=== PATIENT | female | born 1990 | race Caucasian/White ===

== ENCOUNTER 2019-10-19 15:11 | Emergency (ER) | payer OTHER, SELFPAY ==
[2019-10-19 15:51] VITALS: BP 139/88; PULSE 107; RESP 16; TEMP 36.9; O2SAT 95
[2019-10-19 16:07] LABS: Basophils Percent Auto 0.2 % (0.2-1.2); Eosinophils Percent Auto 0.3 % (0-4.4); Hematocrit 37.4 % (37.0-47.0); Hemoglobin 12.5 g/dL (12.0-15.0); Immature Granulocyte Absolute 0.07 K/mm3 (0.00-0.031); Immature Granulocyte Percent A 0.6 % (0-0.5); Lymphocytes Absolute Auto 1.08 K/mm3 (0.9-3.2); Lymphocytes Percent Auto 8.9 % (18.3-44.2); Mean Corpuscular HGB Conc 33.4 g/dl (32-36); Mean Corpuscular Hemoglobin 31.8 pg (26-34); Mean Corpuscular Volume 95.2 fl (80-100); Mean Platelet Volume 9.1 fl (7.4-10.4); Monocytes Absolute Auto 0.2 K/mm3 (0.1-0.6); Monocytes Percent Auto 1.2 % (2.6-8.5); Neutrophils Absolute Auto 10.8 K/mm3 (1.3-6.7); Neutrophils Percent Auto 88.8 % (45.5-73.1); Platelet Count Result 666 k/mm3 (150-375); Red Blood Count 3.93 M/mm3 (4.2-5.4); Red Cell Distribution Width 11.9 % (11.5-14.5); White Blood Count 12.1 K/mm3 (4.5-10.0)
[2019-10-19 16:12] LABS: Add Urine Microscopic? YES; Appearance Urine Clear (Clear); Bacteria Urine Trace /hpf; Bilirubin Urine 1+ (Negative); Color Urine Amber (Yellow); Glucose Urine UA Negative (Negative); Ketones Urine Negative (Negative); Leukocyte Esterase Ur Trace LEU/UL (Negative); Mucus Urine Heavy /lpf; Nitrate Urine Negative (Negative); Protein Urine 2+ mg/dL (Negative); RBC Urine 0-2 /hpf (0-2); Squamous Epithelial Cell Urine Many /hpf (Few)
[2019-10-19 16:13] LABS: Blood Urine Negative (Negative); Specific Grav Ur 1.039 (1.001-1.035)
[2019-10-19 16:18] LABS: Alanine Aminotransferase 15 U/L (4-35); Albumin Level 4.2 g/dL (3.5-5.1); Alkaline Phosphatase 157 U/L (38-126); Aspartate Amino Transferase 23 U/L (14-36); Bilirubin,Total 0.5 mg/dL (0.2-1.3); Blood Urea Nitrogen 6 mg/dL (7-17); Calcium 9.4 mg/dL (8.4-10.2); Carbon Dioxide 24 mmol/L (22-30); Chloride 99 mmol/L (98-107); Estimated CRCL calculation 130 ml/min; Estimated Glomerular Filt Rate > 60; Glucose 124 mg/dL (65-105); Lipase 17 U/L (23-300); Potassium 3.1 mmol/L (3.4-5.0); Sodium 136 mmol/L (137-145)
--- NOTE | 2019-10-19 16:35 | ED.NAVMDI ---
HPI - Nausea/Vomiting/Diarrhea General Chief complaint: Nausea/Vomiting/Diarrhea Stated complaint: fever, n/v x1 week Time Seen by Provider: 10/19/19 16:26 History of Present Illness HPI Narrative: Patient presents with her for 1 week of nausea vomiting and diarrhea. Yesterday she actually felt better and only vomited once last night, but then it resumed again today. She last vomited in the car on the way here. 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 Her children are 2 and 4 but they are not sick. She has not been camping, they have not traveled. No one else in the family is sick. She has not had an illness like this before. She has had no fever. Today she felt very weak. Her only medication is control. Surgeries include 2 C-sections. She stopped drinking 1 week ago. She smokes marijuana but not cigarettes. MD elicited complaint: nausea, vomiting and diarrhea Onset (ago): day(s) Related Data Home Medications Medication Instructions Recorded Confirmed Control 10/19/19 Allergies Allergy/AdvReac Type Severity Reaction Status Date / Time No Known Allergies Allergy Unknown Unverified 10/19/19 15:12 Review of Systems Review of Systems: Narrative: CONSTITUTIONAL: Denies fever, chills, or sweats. EYES: Denies visual changes, redness, or discharge. ENT: Denies rhinorrhea, congestion, sore throat, or otalgia. CARDIOVASCULAR: Denies chest pain, palpitations, or edema. RESPIRATORY: Denies cough or dyspnea. GASTROINTESTINAL: Denies abdominal pain, but has nausea, vomiting, and diarrhea. GENITOURINARY: Denies dysuria or hematuria. SKIN: Denies rash or itching. MUSCULOSKELETAL: Denies back pain, joint pain, or myalgia. NEUROLOGIC: Denies headache, numbness, or weakness. PSYCHIATRIC: Denies anxiety or depression. [facility] Past Medical History Medical History Family planning Surgical History Surgical History History of Social History Social History (Updated 10/19/19 @ 16:38 by Venus Still MD) Smoking status: Never smoker Alcohol intake: current Substance use: current Substance use type: marijuana Gender identity (if verbalized by the patient): Female Exam Narrative: Exam Narrative: GENERAL: Well-appearing, well-nourished, and in no acute distress. Overweight HEAD: Normocephalic, atraumatic. EYES: PERRLA and EOMI. ENT: Nares clear, no rhinorrhea or epistaxis. Mucous membranes moist. NECK: Supple. CHEST: Clear to auscultation. No respiratory distress. HEART: Regular rate and rhythm. No murmur heard. Normal peripheral pulses. ABDOMEN: Soft, nontender, nondistended, normal active bowel sounds. EXTREMITIES: Normal range of motion. No edema. SKIN: Warm, dry, no rash. NEURO: No focal deficits. Alert and oriented x3. PSYCH: Normal mood and affect. Course Reevaluation(s) Reevaluation #1: Went in to talk to the patient and her . Her fluids just finished and she feels much better. She has a bag of open pretzels next to her and she says she is hungry. I offered to give her a prescription for Zofran and she accepts. I discussed the brat diet, and getting some probiotics. She understands. Date: 10/19/19 Time: 17:31 Vital Signs Vital signs: Vital Signs Temperature 98.4 F 10/19/19 15:51 Pulse Rate 107 H 10/19/19 15:51 Respiratory Rate 16 10/19/19 15:51 Blood Pressure 139/88 10/19/19 15:51 Pulse Oximetry 95 10/19/19 15:51 Temperature 98.4 F 10/19/19 15:51 Pulse Rate 107 H 10/19/19 15:51 Respiratory Rate 16 10/19/19 15:51 Blood Pressure 139/88 10/19/19 15:51 Pulse Oximetry 95 10/19/19 15:51 MDM - Nausea/Vomiting/Diarrhea Differential Diagnosis Differential diagnosis: Likely gastroenteritis Medical Records Attestation: I reviewed the patient's medical records. Lab Data Attestation: I reviewed the patient's lab
[2019-10-19] MEDS: ONDANSETRON INJ 4 MG/2 ML VIAL IV PUSH (16:45)
[2019-10-19] MEDS: SODIUM CHLORIDE 0.9% IV 1,000 ML 999 ML IV CONT (16:46)
[2019-10-19] MEDS: POTASSIUM CHLORIDE 10 MEQ TABLET PO (16:48)
[2019-10-19 17:57] VITALS: BP 128/78; PULSE 80; RESP 16; O2SAT 99
== END 2019-10-19 17:59 | disposition home or self-care (01) ==
PROVIDERS: Emergency Provider Emergency Medicine; PCP Nurse Practitioner Family
DX: K52.9 Noninfective gastroenteritis and colitis, unspecified (principal); E87.6 Hypokalemia; D47.3 Essential (hemorrhagic) thrombocythemia
CPT/HCPCS: 36415; 80053; 81001; 81025; 83690; 85025; 87086; 96361; 96374; 99284; A9270; J2405; J7030

== ENCOUNTER 2020-08-09 12:48 | Emergency (ER) | payer OTHER, SELFPAY ==
--- NOTE | ~2020-08-09 | XR_ITS ---
XR heel LT min 2V 08/09/2020 13:38 Indication: Left heel pain Procedure: 2 views left heel Comparison: No prior studies for comparison. Findings: No fracture, subluxation or dislocation. There is a prominent plantar calcaneal enthesophyt e. No focal soft tissue abnormality. No foreign bodies. Impression: 1: No acute bone or joint abnormality. Reviewed, dictated and finalized at location B. Impression: 1: No acute bone or joint abnormality.
[2020-08-09 13:09] VITALS: TEMP 36.8
--- NOTE | 2020-08-09 13:34 | ED.GENADULT ---
HPI - General Adult General Chief complaint: Extremity Injury, Lower Stated complaint: heel injury Time Seen by Provider: 08/09/20 13:25 Source: patient History of Present Illness HPI narrative: Patient is a 29 y/o female complaining of left heel pain after she missed a step yesterday. She describes her pain as sharp and rates it as 7/10. She states that weight bearing aggravates her pain. There is no pain radiation. Related Data Home Medications Medication Instructions Recorded Confirmed Control 10/19/19 Allergies Allergy/AdvReac Type Severity Reaction Status Date / Time No Known Allergies Allergy Unknown Unverified 10/19/19 15:12 Review of Systems Constitutional: Constitutional: Denies chills, Denies fever(s), Denies headache(s) and Denies weakness Eyes: Eyes: Denies blurry vision ENT: Denies headache(s) and Denies neck pain Cardiovascular: Cardiovascular: Denies chest pain and Denies dyspnea Respiratory: Respiratory: Denies cough and Denies dyspnea Gastrointestinal: Gastrointestinal: Denies abdominal pain, Denies diarrhea, Denies nausea and Denies vomiting Genitourinary: Genitourinary: Denies hematuria and Denies dysuria Musculoskeletal: Musculoskeletal: Reports as per HPI, Denies back pain, Denies neck pain and Reports other (left heel pain) Neurologic: Denies headache(s) and Denies weakness PMFSH Past Medical History Medical History Family planning Surgical History Surgical History History of Social History Social History Smoking status: Never smoker Alcohol intake: current Substance use: current Substance use type: marijuana Gender identity (if verbalized by the patient): Female Exam Const: General: no acute distress and well developed Orientation/consciousness: oriented to person, oriented to place, oriented to time and patient oriented x3 HENMT: Head: normocephalic Ears: external ears normal General nose exam: Normal external nose present Eyes: General: appearance normal, both eyes and all related structures Conjunctivae: conjunctivae normal Neck: Neck: normal visual inspection and full ROM Chest: Chest palpation & inspection: normal inspection of the chest and no tenderness Skin: General skin exam: normal color and turgor normal Neuro: General: oriented to person, oriented to place, oriented to time and patient oriented x3 Cognition (Neuro): normal cognition Extrem: General: normal to inspection, full ROM and no pedal edema Left lower extremity: foot Details: tenderness (heel) Psych: Appearance: grossly normal Mental Status: mental status grossly normal Affect: normal affect Course Vital Signs Vital signs: Vital Signs Temperature 36.8 C 08/09/20 13:09 Temperature 36.8 C 08/09/20 13:09 Medical Decision Making Vital Signs Vital Signs: Vital Signs Temperature 36.8 C 08/09/20 13:09 Temperature 36.8 C 08/09/20 13:09 Lab Data Labs: UCG Bedside Result Negative Reference Range: Negative Discharge Plan Discharge Clinical Impression: Pain of left heel, Plantar fasciitis, left Patient Disposition: Home, Self-Care Condition: Stable Instructions: Plantar Fasciitis (ED) Prescriptions: No Action Control RF: 0 ondansetron HCl [Zofran] 4 mg tablet 4 mg PO Q6H PRN (Reason: nausea and vomiting) Qty: 20 RF: 0 Follow-up/Referrals: [facility],Aide See APN [Primary Care Provider] - Stand Alone Forms: Work/School Release IP
== END 2020-08-09 14:47 | disposition home or self-care (01) ==
PROVIDERS: Emergency Provider Emergency Medicine; PCP Nurse Practitioner Family
DX: M79.672 Pain in left foot (principal); M72.2 Plantar fascial fibromatosis; X58.XXXA Exposure to other specified factors, initial encounter
CPT/HCPCS: 73650; 81025; 99283

== ENCOUNTER 2023-06-13 17:06 | Outpatient (CLI) | payer OTHER, SELFPAY ==
[2023-06-13 17:57] LABS: Beta HCG Quantitative 8.25 mIU/ML
== END 2023-06-13 17:07 | disposition home or self-care (01) ==
LOC: ANHLAB 17:08
PROVIDERS: PCP Nurse Practitioner Family; Visit Provider Obstetrics & Gynecology
DX: N92.6 Irregular menstruation, unspecified (principal)
CPT/HCPCS: 36415; 84702

== ENCOUNTER 2023-06-15 11:35 | Outpatient (CLI) | payer OTHER, SELFPAY ==
[2023-06-15 12:12] LABS: Beta HCG Quantitative < 2.39 mIU/ML
== END 2023-06-15 11:36 | disposition home or self-care (01) ==
LOC: ANHLAB 11:36
PROVIDERS: PCP Nurse Practitioner Family; Visit Provider Obstetrics & Gynecology
DX: N92.6 Irregular menstruation, unspecified (principal)
CPT/HCPCS: 36415; 84702

== ENCOUNTER 2024-05-28 09:22 | Inpatient (IN) | payer BC, SELFPAY ==
[2024-05-28] VITALS (51 sets, daily range): BP systolic 99–143; BP diastolic 51–111; PULSE 71–112; RESP 12–18; TEMP 36.3–36.9; O2SAT 94–100; BMI 39.8
--- OUTSIDE RECORDS SUMMARY | 2024-05-28 00:17 | XMS_ITS | Data Portability ---
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 Plan of Treatment Reminders Order Date Submit Date Provider Last Modified By Organization Details Last Modified Time Details Appointments None recorded . Lab TSH, ultra-se nsitive, serum 2022 023 TAMARA [facility], [address], [place], [address], 3 08:33:52 CMP, serum or plasma 2022 023 TAMARA [facility], [address], [place], [address], 3 03:07:53 lipid panel, serum 2022 023 TAMARA [facility], [address], [place], [address], 3 03:07:52 CBC 2022 023 TAMARA [facility], [address], [place], [address], 3 03:07:54 vitamin D, 25-hydro xy, total, serum 2022 023 TAMARA [facility], [address] [facility], [address], [place], [address], 3 08:33:52 Referral None recorded . Procedures None recorded . Surgeries None recorded . Imaging None recorded . Medication Orders hydrochl orothiaz venancio 12.5 mg tablet 2022 023 [facility] #[id number], [address], [place], [place], [id number], 4 15:47:03 Wellbutr in SR 150 mg tablet, 12 hr sustaine d-releas e [address] [facility] #[id number], [address], [place], [place], [id number], 4 17:07:01 hydrochl orothiaz venancio 12.5 mg tablet 2022 023 [id number], [address], [place], [place], [id number], 4 15:47:03 Wellbutr in SR 150 mg tablet, 12 hr sustaine d-releas e [address] [facility][id number], [address], [place], [place], [id number], 4 17:07:01 hydrochl orothiaz venancio 12.5 mg tablet 2023 024 [id number], [address], [place], [place], [id number], 4 15:47:13 Patient TargetsNo targets recorded. Patient Instructions Encounter Date Encounter Id Patient Instructions Last Modified By Organization Details Last Modified Time 07/31/2022 [id number] A healthy lifestyle: care instructions Not available 07/31/2022 11:48:37 leg and ankle edema: care instructions Not available 07/31/2022 11:48:36 learning about vitamin D Not available 07/31/2022 11:48:36 attention defici t hyperactivity disorder (ADHD) in adults: care instructions Not available 07/31/2022 11:48:36 learning about mood disorders Not available 07/31/2022 11:48:36 Cont on current medications. Not available 07/31/2022 11:42:00 f/u 6 months DWP barriers to care: none Not available 07/31/2022 11:42:01 01/30/2023 [id number] A healthy lifestyle: care instructions Not available 01/30/2023 17:19:42 leg and ankle edema: care instructions Not available 01/30/2023 17:19:42 learning about vitamin D Not available 01/30/2023 17:19:42 attention defici t hyperactivity disorder (ADHD) in adults: care instructions Not available 01/30/2023 17:19:42 learning about mood disorders Not available 01/30/2023 17:19:42 Cont on current medications. Not available 01/30/2023 17:08:59 f/u 6 months DWP barriers to care: none Not available 01/30/2023 17:09:00 08/26/2023 [id number] A healthy lifestyle: care instructions Not available 08/26/2023 17:16:31 leg and ankle edema: care instructions Not available 08/26/2023 17:16:31 learning about vitamin D Not available 08/26/2023 17:16:31 attention defici t hyperactivity disorder (ADHD) in adults: care instructions Not available 08/26/2023 17:16:31 learning about mood disorders Not available 08/26/2023 17:16:31 Cont on current medications. Not available 08/26/2023 16:45:53 f/u 6 months DWP barriers to care: none Not available 08/26/2023 17:16:47 12/02/2023 [id number] work-life balanc e: care instructions Not available 12/02/2023 16:07:02 nutrition during : care instructions Not available 12/02/2023 16:07:13 exercise during : care instructions Not available 12/02/2023 16:07:13 Increase intake of fresh fruits, and vegetables. Avoid packaged foods and fast foods. Follow a low salt diet, drink at least 8-10 8oz glasses of water a day, exercise most days of the week. Take all medications as prescribed. Keep appointments with PCP and all specialists. Not available 12/02/2023 16:06:45 follow up as needed Not available 12/02/2023 16:06:52 03/13/2024 [id number] tetanus and diphtheria booster: care instructions Not available 03/14/2024 20:16:37 Reason for Referral None Reported. Results Created Date Observation Date Name Description Value Unit Range Abnormal Flag Note LastModifiedBy Organization Detail LastModifiedTime 02/14/2002/13/2023 LIPID PANEL cholesterol, total 218 mg/dL 100-19 9 above high normal Not Available [facility] [address] [place], [address], 02/14/2023 03:07:52 02/14/2002/13/2023 LIPID PANEL triglyceride s 168 mg/dL 0-149 above high normal Not Available [facility] [address] [place], [address], 02/14/2023 03:07:52 02/14/2002/13/2023 LIPID PANEL HDL cholesterol 57 mg/dL 40-999 Not Available [facility] [address] [place], [address], 02/14/2023 03:07:52 02/14/2002/13/2023 LIPID PANEL VLDL cholesterol vanita 34 mg/dL 5-40 Not Available [facility] [address] [place], [address], 02/14/2023 03:07:52 02/14/2002/13/2023 LIPID PANEL LDL chol calc (nih) 151 mg/dL 0-99 above high normal Not Available [facility] [address] [place], [address], 02/14/2023 03:07:52 02/14/20 23 02/13/2023 COMP. METAB OLIC PANEL (14) glucose 102 mg/dL 70-99 above high normal Not Available [facility] [address] [place], [address], 02/14/2023 03:07:53 02/14/20 23 02/13/2023 COMP. METAB OLIC PANEL (14) BUN 9 mg/dL 6-20 Not Available [facility] [address] [place], [address], 02/14/2023 03:07:53 02/14/20 23 02/13/2023 COMP. METAB OLIC PANEL (14) creatinine 0.57 mg/dL 0.76-1 .27 below low normal Not Available [facility] [address] [place], [address], 02/14/2023 03:07:53 02/14/20 23 02/13/2023 COMP. METAB OLIC PANEL (14) eGFR 123 >=60 Units for eGFR value s are mL/mi n/1.7 3 The eGFR Calcu latio n has not been valid ated for patie nts under the age of 18. If test resul ts are displ ayed for a patie nt under the age of 18, disre nehemiah that value . Not Available [facility] [address] [place], [address], 02/14/2023 03:07:53 02/14/20 23 02/13/2023 COMP. METAB OLIC PANEL (14) BUN/creatini ne ratio 15 9-23 Not Available [facility] [address] [place], [address], 02/14/2023 03:07:53 02/14/20 23 02/13/2023 COMP. METAB OLIC PANEL (14) sodium 141 mmol/ L 134-14 4 Not Available [facility] [address] [place] [address], [address], 02/14/2023 03:07:53 02/14/20 23 02/13/2023 COMP. METAB OLIC PANEL (14) potassium 4.2 mmol/ L 3.5-5. 2 Not Available [facility] [address] [place], [address], 02/14/2023 03:07:53 02/14/20 23 02/13/2023 COMP. METAB OLIC PANEL (14) chloride 102 mmol/ L 96-106 Not Available [facility] [address] [place] [address], [address], 02/14/2023 03:07:53 02/14/20 23 02/13/2023 COMP. METAB OLIC PANEL (14) carbon dioxide, total 27 mmol/ L 20-29 Not Available [facility] [address] [place], [address], 02/14/2023 03:07:53 02/14/20 23 02/13/2023 COMP. METAB OLIC PANEL (14) calcium 9.8 mg/dL 8.7-10 .2 Not Available [facility] [address] [place] [address], [address], 02/14/2023 03:07:53 02/14/20 23 02/13/2023 COMP. METAB OLIC PANEL (14) protein, total 7.3 g/dL 6.0-8. 5 Not Available [facility] [address] [place], [address], 02/14/2023 03:07:53 02/14/20 23 02/13/2023 COMP. METAB OLIC PANEL (14) albumin 4.6 g/dL 3.9-4. 9 Not Available [facility] [address] [place] [address], [address], 02/14/2023 03:07:53 02/14/20 23 02/13/2023 COMP. METAB OLIC PANEL (14) globulin, total 2.7 g/dL 1.5-4. 5 Not Available [facility] [address] [place], [address], 02/14/2023 03:07:53 02/14/20 23 02/13/2023 COMP. METAB OLIC PANEL (14) A/G ratio 2.0 1.2-2. 2 Not Available [facility] [address] [place], [address], 02/14/2023 03:07:53 02/14/20 23 02/13/2023 COMP. METAB OLIC PANEL (14) bilirubin, total 0.3 mg/dL 0.0-1. 2 Not Available [facility] [address] [place], [address], 02/14/2023 03:07:53 02/14/20 23 02/13/2023 COMP. METAB OLIC PANEL (14) alkaline phosphatase 74 IU/L 44-121 Not Available [facility] [address] [place], [address], 02/14/2023 03:07:53 02/14/20 23 02/13/2023 COMP. METAB OLIC PANEL (14) AST (SGOT) 15 IU/L 0-40 Not Available [facility] [address] [place], [address], 02/14/2023 03:07:53 02/14/20 23 02/13/2023 COMP. METAB OLIC PANEL (14) ALT (SGPT) 11 IU/L 0-32 Not Available [facility] [address] [place] [address], [address], 02/14/2023 03:07:53 02/14/20 23 02/13/2023 CBC, NO DIFFE RENTI AL/PL ATELE T WBC 9.2 x10e3 /uL 3.4-10 .8 Not Available [facility] [address] [place], [address], 02/14/2023 03:07:54 02/14/20 23 02/13/2023 CBC, NO DIFFE RENTI AL/PL ATELE T RBC 4.30 x10e6 /uL 3.77-5 .28 Not Available [facility] [address] [place], [address], 02/14/2023 03:07:54 02/14/2002/13/2023 CBC, NO DIFFE RENTI AL/PL ATELE T hemoglobin 13.2 g/dL 11.1-1 5.9 Not Available [facility] [address] [place], [address], 02/14/2023 03:07:54 02/14/2002/13/2023 CBC, NO DIFFE RENTI AL/PL ATELE T hematocrit 41.2 % 34.0-4 6.6 Not Available [facility] [address] [place], [address], 02/14/2023 03:07:54 02/14/20 23 02/13/2023 CBC, NO DIFFE RENTI AL/PL ATELE T MCV 96 fL 79-97 Not Available [facility] [address] [place], [address], 02/14/2023 03:07:54 02/14/2002/13/2023 CBC, NO DIFFE RENTI AL/PL ATELE T MCH 30.7 pg 26.6-3 3.0 Not Available [facility] [address] [place], [address], 02/14/2023 03:07:54 02/14/20 23 02/13/2023 CBC, NO DIFFE RENTI AL/PL ATELE T MCHC 32.0 g/dL 31.5-3 5.7 Not Available [facility] [address] [place], [address], 02/14/2023 03:07:54 02/14/20 23 02/13/2023 CBC, NO DIFFE RENTI AL/PL ATELE T RDW 12.2 % 11.5-1 4.5 Not Available [facility] [address] [place], [address], 02/14/2023 03:07:54 02/14/20 23 02/13/2023 CBC, NO DIFFE RENTI AL/PL ATELE T NRBC 0 % 0-0 Not Available [facility] [address] [place], [address], 02/14/2023 03:07:54 02/14/20 23 02/14/2023 TSH RFX ON ABNOR MAL TO FREE T4 TSH 4.040 uIU/m L 0.450- 4.500 Not Available [facility] ([facility]) [address] [facility], [place], [address], 02/14/2023 08:33:51 02/14/2002/14/2023 VITAM IN D, 25-HY DROXY vitamin D, 25-hydroxy 30.7 NG/mL 30.0-1 00.0 Vitam in D defic iency has been defin ed by the Insti tute of Medic ine and an Endoc rine Socie ty pract ice guide line as a level of serum 25-OH vitam in D less than 20 ng/mL (1,2) . The Endoc rine Socie ty went on to furth er defin e vitam in D insuf ficie ncy as a level betwe en 21 and 29 ng/mL (2). 1. IOM (Inst itute of Medic ine). 2009. Dieta ry refer ence intak es for calci um and D. Sarah jean [place]: [facility] Press . 2. Katie foster MF, Larisa henderson [place], Chiqui off-F errar i PATEL, et al. Evalu ation , treat ment, and preve ntion of vitam in D defic iency : an Endoc rine Socie ty clini vanita pract ice guide line. JCEM. 2010; 96(7) :1911 -30. Not Available [facility] ([facility]) [address] [facility], [place], [address], 02/14/2023 08:33:52 Result Notes None recorded. Problems Name Problem SNOMED Code Status Onset Date Resolution Date Notes Provider Name and Address Organization Details Recorded Time Body mass index 30+ - obesity 676239319 Active 2017 Aide Fischer APN, FNP-C Attn: Shanikahaydee kc,[address] [place], [place], [address] [place] [address] 2, [facility] - SI 0 18:20:04 Vitamin D deficienc y 23624963 Active 2018 Aide Fischer APN, FNP-C Attn: Shanikahaydee kc,[address] [place], [place], [address] [place] [address] 2, [facility] - SIF 0 18:20:04 Gastroeso phageal reflux disease without esophagit is 867648760 Active 2018 Aide Fischer APN, FNP-C Attn: Shanikahaydee kc,[address] [place], [place], [address] [place] [address] 2, [place] - [facility] 0 18:20:04 Mood disorder 29402752 Active 2019 Aide Fischer APN, FNP-C Attn: Hope de,[address] [place], [place], [address] [place] [address] 2, [place] - [place] 0 11:44:32 Bilateral plantar fasciitis 680081842008 36641 Active 2020 Aide Fischer APN, FNP-C Attn: Hope de,[address] [place], [place], [address] [place] [address] 2, [place] - [place] 1 17:06:41 Edema of lower extremity 938191984 Active 2021 Aide Fischer APN, FNP-C Attn: Hope kc,[address] [facility], [place], [address], [facility] - SI 2 15:48:30 Adult attention deficit hyperacti vity disorder 250019324 Active 2021 Aide Fischer APN, WOOD COATER-C Attn: Hope kc,[address] [facility], [place], [address], [facility] - SIF 2 13:12:57 Obesity 625810148 Active 2022 Aide Fischer APN, WOOD COATER-C Attn: Hope kc,[address] [facility], [place], [address], [facility] - SI 3 11:48:23 Overweigh t 838216126 Completed 09/09/2020 Aide Fischer APN, WOOD COATER-C Attn: Hope kc,[address] [facility], [place], [address], [facility] - SI 1 16:15:43 Problem Notes None recorded. Procedures Surgical History Date Name Laterality Status Provider Name and Address Organization Details Recorded Time 7 Caesarean Section completed Anastasiia Aguila [facility] 10/03/2017 10:19:46 5 Caesarean Section completed Jason Akins MA [facility] 02/07/2015 10:11:50 Imaging Results None recorded. Procedure Notes None recorded. Medical Equipment None Reported. Allergies No known drug allergies Medications Name Sig Start Date Stop Date Status Note LastModified by Organization Details LastModified Time oxycodone /acetamin ophen 5-325 mg tabs active Not Available Not Available Not Available Mirena 21 mcg/24 hr (up to 8 years) 52 mg intrauter ine device 11/25 completed removed 11/26/19 19 Not Available Not Available Not Available bupropion HCl SR 150 mg tablet,12 hr sustained -release Take 1 tablet every day by oral route in the morning. 08/25 completed Not taking Not Available Not Available Not Available promethaz ine-DM 6.25 mg-15 mg/5 mL oral syrup 05/14 completed Not Available Not Available Not Available citalopra m 40 mg tablet TAKE 1 TABLET BY MOUTH EVERY DAY 11/06 completed Not Available Not Available Not Available ibuprofen 800 mg tablet TAKE 1 TABLET BY MOUTH THREE TIMES DAILY 12/01 completed Not Available Not Available Not Available ethynodio l diacetate -ethinyl estradiol 1 mg-35 mcg tablet TAKE 1 TABLET BY MOUTH DAILY 07/31 completed Not Available Not Available Not Available hydrocodo ne 5 mg-acetam inophen 325 mg tablet 10/03 completed Not Available Not Available Not Available metronida zole 0.75 % (37.5 mg/5 gram) vaginal gel 10/03 completed Not Available Not Available Not Available ondansetr on HCl 4 mg tablet 02/01 completed Not Available Not Available Not Available prednison e 20 mg tablet 05/14 completed Not Available Not Available Not Available Tubersol 5 tub. unit/0.1 mL intraderm al injection solution Administ er .1ml interder kelvin 07/31 completed Not Available Not Available Not Available acetamino phen 300 mg-codein e 30 mg tablet TAKE 1 TO 2 TABLETS BY MOUTH EVERY 4 TO 6 HOURS NEEDED FOR PAIN 11/06 completed Not Available Not Available Not Available bupropion HCl SR 100 mg tablet,12 hr sustained -release TAKE 1 TABLET BY MOUTH TWICE DAILY 07/31 completed Not Available Not Available Not Available amoxicill in 500 mg tablet TAKE 1 TABLET BY MOUTH EVERY 6 HOURS 08/07 completed Not Available Not Available Not Available citalopra m 20 mg tablet TAKE 1 TABLET BY MOUTH EVERY DAY 05/26 completed pt is taking 40 mg Not Available Not Available Not Available ergocalci ferol (vitamin D2) 1,250 mcg (50,000 unit) capsule TAKE 1 CAPSULE BY MOUTH EVERY WEEK active Not Available Not Available No t Available ibuprofen 600 mg tablet 02/01 completed Not Available Not Available Not Available ondansetr on 4 mg disintegr ating tablet DISSOLVE 1 TABLET ON THE TONGUE EVERY 6 HOURS active Not Available Not Available No t Available fluticaso ne propionat e 50 mcg/actua tion nasal spray,joaquim pension 02/01 completed Not Available Not Available Not Available multivita min 02/01 completed Not Available Not Available Not Available hydrochlo rothiazid e 12.5 mg tablet TAKE 1 TABLET BY MOUTH EVERY DAY 12/01 completed Not Available Not Available Not Available cholecalc iferol (vitamin D3) 1,250 mcg (50,000 unit) capsule Take 1 capsule every week by oral route. 11/25 completed Not Available Not Available Not Available Kina 14 mcg/24 hr (up to 3 years) 13.5 mg intrauter ine device 07/31 completed Not Available Not Available Not Available Vitals Date Recorded Body height Body mass index (BMI) Body weight Oxygen saturation Oxygen saturation in Arterial blood by Pulse oximetry Heart rate Respiratory rate Body temperature Systolic blood pressure Diastolic blood pressure Provider Name and Address Organization Details Last Updated DateTime 3 160.02 cm 37.9 kg/m2 75172.7 7 g 96 % 96 % 102 /min 16 /min 99.1 [degF] 112 mm[Hg] 78 mm[Hg] Eryn Bowman [place] - [facility] 3 11:26:21 Date Recorded Body height Body mass index (BMI) Body weight Oxygen saturation Oxygen saturation in Arterial blood by Pulse oximetry Heart rate Respiratory rate Body temperature Systolic blood pressure Diastolic blood pressure Provider Name and Address Organization Details Last Updated DateTime 3 160.02 cm 37.7 kg/m2 34215.4 6 g 97 % 97 % 96 /min 14 /min 97.8 [degF] 109 mm[Hg] 73 mm[Hg] Annel Lock [place] - [facility] 3 17:07:55 Date Recorded Body height Body mass index (BMI) Body weight Oxygen saturation Oxygen saturation in Arterial blood by Pulse oximetry Heart rate Respiratory rate Body temperature Systolic blood pressure Diastolic blood pressure Provider Name and Address Organization Details Last Updated DateTime 4 160.02 cm 38.8 kg/m2 00088.0 9 g 98 % 98 % 94 /min 16 /min 98.4 [degF] 121 mm[Hg] 82 mm[Hg] Ellen Del Castillo [place] - [facility] 4 16:43:43 Date Recorded Body height Body mass index (BMI) Body weight Oxygen saturation Oxygen saturation in Arterial blood by Pulse oximetry Respiratory rate Body temperature Heart rate Systolic blood pressure Diastolic blood pressure Provider Name and Address Organization Details Last Updated DateTime 4 160.02 cm 37.7 kg/m2 52047.1 7 g 97 % 97 % 16 /min 98.6 [degF] 76 /min 109 mm[Hg] 68 mm[Hg] LOUISE Solis [place] - [facility] 4 15:48:54 Social History Question Answer Notes LastModified by Organizat ion Details LastModified Time Tobacco Smoking Status Former Smoker quit smoking 07/14/21 Eryn Bowman [facility], [place] - [place] 12/12/2021 11:39:02 Do You Have An Advance Directive? No Information not available 05/14/2019 What Is Your Level Of Alcohol Consumption? None Rarely Information not available 01/30/2023 Are You Blind Or Do You Have Difficulty Seeing? No Glasses Information not available 01/30/2023 What Is Your Level Of Caffeine Consumption? Moderate Information not available 01/30/2023 How Much Tobacco Do You Chew? None Information not available 10/03/2017 In The 14 Days Before Symptom Onset, Have You Had Close Contact With A Laboratory-confir med COVID-19 While That Case Was Ill? No Information not available 02/02/2020 In The 14 Days Before Symptom Onset, Have You Had Close Contact With A Person Who Is Under Investigation For COVID-19 While That Person Was Ill? No Information not available 02/02/2020 Have You Been To An Area Known To Be High Risk For COVID-19? No Information not available 02/02/2020 Are You Currently Employed? Yes [email or web address] Information not available 12/12/2021 Are You Deaf Or Do You Have Serious Difficulty Hearing? No Information not available 09/09/2020 What Type Of Diet Are You Following? REGULAR Information not available 12/02/2023 Which Illicit Or Recreational Drugs Have You Used? Denies Information not available 10/03/2017 Do You Or Have You Ever Used E-cigarettes Or Vape? Never Used Electronic Cigarettes Information not available 05/14/2019 What Is Your Occupation? Scottie Barrios [email or web address] Information not available 07/31/2022 Are There Any Guns Present In Your Home? Yes Information not available 05/14/2019 Hard Of Hearing Or Deaf In One Or Both Ears? No Information not available 10/03/2017 Legally Blind In One Or Both Eyes? No Information no t available 10/03/2017 Marital Status Informatio n not available 05/14/2019 What Was The Date Of Your Most Recent Tobacco Screening? 12/02/2023 Information not available 12/02/2023 Performs Monthly Self-breast Exam? Yes Information no t available 10/03/2017 What Is Your Relationship Status? Information not available 09/09/2020 Do You Use Your Seat Belt Or Car Seat Routinely? Yes Information not available 09/09/2020 Seat Belts Used Routinely Yes Information not available 05/14/2019 Are You Sexually Active? Yes [email or web address] Information not available 03/14/2021 Smoke Alarm In Home Yes Information not available 05/14/2019 Do You Have Smoke And Carbon Monoxide Detectors In Your Home? Yes Information not available 09/09/2020 At What Age Did You Start Smoking Tobacco? 15 [email or web address] Information not available 02/07/2015 Are You Passively Exposed To Smoke? No Information no t available 09/09/2020 Do You Or Have You Ever Used Smokeless Tobacco? Never Used Smokeless Tobacco Information not available 05/14/2019 How Much Tobacco Do You Smoke? No [email or web address] Information not available 08/07/2021 General Stress Level Medium [email or web address] Information not available 02/07/2015 Do You Feel Stressed (tense, Restless, Nervous, Or Anxious, Or Unable To Sleep At Night)? [id number] Information not available 03/14/2021 Do You Use Any Illicit Or Recreational Drugs? No Information not available 09/09/2020 Do You Use Sunscreen Routinely? Yes Information not available 05/14/2019 Has Tobacco Cessation Counseling Been Provided? Yes [email or web address] Information not available 11/06/2021 On What Date Was Tobacco Cessation Counseling Provided? 12/02/2023 Information not available 12/02/2023 Do You Or Have You Ever Used Any Other Forms Of Tobacco Or Nicotine? No Information not available 09/09/2020 Sex: Female Functional Status Question Answer Note LastModified by Organization D etails LastModified Time Are you able to care for yourself? Yes Information n ot available 09/09/2020 What is your exercise level? None Information not available 12/02/2023 Mental Status None recorded. Family History Relationship Description Onset Age of this Age Resolved Age Notes LastModified by Organization Details LastModified Time Mother Asthma [email or web address] Not available 02/07/2015 10:14:03 Mother Depressive disorder Not available 2017 10:05:16 Mother Hypercholest [email or web address] Not available 2017 10:11:43 Father Cerebrovascu lar accident [email or web address] Not available 10:14:03 Father Depressive disorder Not available 2017 10:05:16 Sister Asthma [email or web address] Not available 02/07/2015 10:14:03 Sister Migraine [email or web address] Not availabl e 02/07/2015 10:14:03 Brother Asthma Not available 10/03/2017 10:04:57 Medical History Condition Response Coronary Artery Disease N Other N Atrial Fibrillation N High Blood Pressure N Thyroid Problems N Kidney or Bladder Problems N Depression Y COPD N Blood Clots N GI Problems N Skin Problems N Eating Disorder N Anemia N Heart Attack (AK) N Diabetes N Anxiety Disorder Y Muscle, Joint, or Bone Problems N Seizures/Epilepsy N Acid Reflux (GERD) N Cancer N Stroke N Allergies N Asthma N ADHD N Substance Abuse N High Cholesterol N Hepatitis N Liver Disease N Schizophrenia N Headaches N Osteoporosis N Heart Failure N Gynecological History Statement/Question Response Flow Moderate Date of LMP 2023 Menses Monthly N Duration of Flow (days) 3 Age at Menarche 10 Current Control Method Age at First Child 24 LMP Definite Obstetrics History GPAL:G 3 P 2 0 1 2 Type Value Full Term 2 Spontaneous 1 Living 2 Total 3 Immunizations Vaccine Type Date Status Note Provider Name and Address Organization Details Recorded Time Tdap 12/16/19 15 completed Aide Fischer, ANIMATOR, WOOD COATER-C Attn: Accounting, [address] [facility], [place], [place], [address] [place] [address], [facility] 12/12/2021 11:46:05 pneumococcal polysaccharide PPV23 04/15/19 14 completed Aide Fischer, ANIMATOR, WOOD COATER-C Attn: Accounting, [address] [facility], [place], [place], [address] [place] [address], [facility] 12/12/2021 11:46:05 Tdap 04/15/19 11 completed Aide Fischer, ANIMATOR, WOOD COATER-C Attn: Accounting, [address] [facility], [place], [place], [address] [place] [address], [facility] 05/14/2019 18:19:58 Influenza, split virus, quadrivalent, preservative 05/14/19 20 cancelled patient objection Aide Fischer, ANIMATOR, WOOD COATER-C Attn: Accounting, [address] [facility], [place], [place], [address] [place] [address], [facility] 05/14/2019 16:16:29 Influenza, split virus, quadrivalent, preservative 03/02/20 20 cancelled patient objection Aide Fischer ANIMATOR, WOOD COATER-C Attn: Accounting, [address] [facility], [place], [place], [address] [place] [address], [facility] 03/02/2020 11:49:22 Tdap 03/13/20 24 completed LOUISE Solis [facility], [facility] 03/13/2024 15:39:05 Past Encounters Encounter ID Performer Location Encounter Start Date Encounter Closed Date Diagnosis/Indication Diagnosis SNOMED-CT Code Diagnosis ICD10 Code Diagnosis Note [id number] Queenie Neal (Adult Med) [address] [place] [address] 02/07/2015 09:53:32 02/07/2015 10:43:17 Adult health examination 787413935 Z00.01 Encouraged well balanced meals, active lifestyle, and routine vision/den verean/nurse obgyn apts. Active or passive immunization 666350573 Z23 Tdap UTD 2011 Flu shot declined Overweight 318949959 E66 .3 Patient is 9 weeks with first child. Patient nursing and working on healthy lifestyle. [id number] MD Ángel Parra (Adult Med) [address] [facility] [place] [address] 10/03/2017 09:55:55 10/03/2017 17:19:01 Adult health examination 707707742 Z00.00 Body mass index 30+ - obesity 111565665 Z68.39 advised low fat, low cholestero l, low carb diet, regular exercise and weight reduction. Nausea 180711761 R11.0 still has nausea on/off, possibly from mirena use and hormones leveling out; refill for zofran provided [id number] Aide Fischer APN, FNP-C [facility] (Adult Med) [address] [place] [address] 11/25/2018 14:20:20 11/26/2018 10:49:58 Body mass index 30+ - obesity 047579957 Z68.39 advised low fat, low cholestero l, low carb diet, regular exercise and weight reduction. 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 Vitamin D deficiency 347 91756 E55.9 check lab [id number] Aide Fischer APN, FNP-C [facility] (Adult Med) [address] [place] [address] 02/02/2020 08:39:03 02/02/2020 18:35:25 Overweight 719123906 E66.3 advised low fat, low cholestero l diet, regular exercise and weight reduction. Vitamin D deficiency 347 11964 E55.9 cont vit d replacemen t Mood disorder 53351931 F 38 pt hx of depression and anxiety while in college, was on med but felt it did not help, did not have SE from it; dwp starting citalopram R/B/A/SE of antidepres tad medication discussed such as gastrointe stinal s/e, mood irritabili ty, Suicidal ideation, risk of torin. [id number] Aide Fischer APN, JUAN Neal (Adult Med) [address] [facility] [place] [address] 03/02/2020 08:06:15 03/03/2020 14:16:57 Influenza vaccination declined 644251148 Z28.21 refused Mood disorder 90547102 F 38 pt hx of depression and anxiety while in college, was on med but felt it did not help, did not have SE from it; dwp starting citalopram - reports better on 20 mg, took 40 mg a few days and noticed she was back to her normal self; will refill at 40 mg, advised pt to call if needing nay futher changes to dose R/B/A/SE of antidepres tad medication discussed such as gastrointe stinal s/e, mood irritabili ty, Suicidal ideation, risk of torin. [id number] Aide Fischer APN, JUAN Neal (Adult Med) [address] [facility] [place] [address] 09/09/2020 16:01:18 09/13/2020 11:22:21 Mood disorder 17129120 F38 pt hx of depression and anxiety while in college, was on med but felt it did not help, did not have SE from it; dwp starting citalopram - reports better 40 mg R/B/A/SE of antidepres tad medication discussed such as gastrointe stinal s/e, mood irritabili ty, Suicidal ideation, risk of torin. Body mass index 30+ - obesity 644191142 Z68.39 advised low fat, low cholestero l, low carb diet, regular exercise and weight reduction. Gastroesop hageal reflux disease without esophagitis 484100565 K21.9 using acv, dwp dietary modificati ons Vitamin D deficiency 347 62697 E55.9 cont vit d replacemen t Bilateral plantar fasciitis 6561709646 9144699 M72.2 prn ibu 800 mg was seen in urgent care for this, dwp exercises and ice [id number] Aide Fischer APN, JUAN Neal (Adult Med) [address] [place] [address] 03/14/2021 12:08:40 03/14/2021 13:44:57 Mood disorder 12234028 F38 pt hx of depression and anxiety while in college,we aned self off citalopram , would like to trial wellbutrin R/B/A/SE of antidepres tad medication discussed such as gastrointe stinal s/e, mood irritabili ty, Suicidal ideation, risk of torin. Body mass index 30+ - obesity 547318549 Z68.39 advised low fat, low cholestero l, low carb diet, regular exercise and weight reduction. Tobacco user 776466543 Z 72.0 Smoking cessation encouraged . [id number] Aide Fischer APN, JUAN Neal (Adult Med) [address] [place] [address] 04/18/2021 16:23:33 04/19/2021 08:35:41 Mood disorder 03829374 F38 pt hx of depression and anxiety while in collegewea cassidy self off citalopram ,improved, cont wellbutrin 100 mg bid R/B/A/SE of antidepres tad medication discussed such as gastrointe stinal s/e, mood irritabili ty, Suicidal ideation, risk of torin. Body mass index 30+ - obesity 827605551 Z68.39 advised low fat, low cholestero l, low carb diet, regular exercise and weight reduction. Tobacco user 009656041 Z 72.0 Smoking cessation encouraged . [id number] Aide Fischer APN, FNP-C [facility] (Adult Med) [address] [facility] [place] [address] 08/07/2021 15:21:30 08/08/2021 09:52:30 Edema of lower extremity 242026728 R60.0 jennifer ankles, will add diuretic prn Body mass index 30+ - obesity 695254526 Z68.39 advised low fat, low cholestero l, low carb diet, regular exercise and weight reduction. [id number] Aide Fischer APN, JUAN Neal (Adult Med) [address] [place] [address] 11/06/2021 12:12:47 11/07/2021 08:50:32 Mood disorder 40286348 F38 pt [facility] , improved, cont wellbutrin but will change dose for off label adhd R/B/A/SE of antidepres tad medication discussed such as gastrointe stinal s/e, mood irritabili ty, Suicidal ideation, risk of torin. cont wellbutrin 100 mg q noon Body mass index 30+ - obesity 791927353 Z68.39 advised low fat, low cholestero l, low carb diet, regular exercise and weight reduction. Vitamin D deficiency 347 51070 E55.9 cont vit d replacemen t Gastroesop hageal reflux disease without esophagitis 343145149 K21.9 using acv, dwp dietary modificati ons Edema of l ower extremity 855801083 R60.0 jennifer ankles,con t diuretic prn Adult atte ntion deficit hyperactivity disorder 879904057 F90.9 reviewed self assessment with pt, will increase wellbutrin in am dosing, declined referral to psychiatry [id number] Aide Fischer APN, JUAN Neal (Adult Med) [address] [place] [address] 12/12/2021 11:32:01 12/13/2021 10:14:17 Mood disorder 82216106 F38 pt [facility] , improved, cont wellbutrin but will change dose for off label adhd R/B/A/SE of antidepres tad medication discussed such as gastrointe stinal s/e, mood irritabili ty, Suicidal ideation, risk of torin. cont wellbutrin Body mass index 30+ - obesity 535307118 Z68.39 advised low fat, low cholestero l, low carb diet, regular exercise and weight reduction. Vitamin D deficiency 347 81886 E55.9 cont vit d replacemen t Gastroesop hageal reflux disease without esophagitis 209178642 K21.9 using acv, dwp dietary modificati ons Edema of l ower extremity 527110181 R60.0 jennifer ankles,con t diuretic prn Adult atte ntion deficit hyperactivity disorder 221375108 F90.9 reviewed self assessment with pt, will increase wellbutrin in am dosing, declined referral to psychiatry Tuberculos is screening 180257630 Z11.1 [id number] Aide Fischer APN, JUAN Neal (Adult Med) [address] [place] [address] 07/31/2022 11:13:00 08/02/2022 15:22:56 Adult attention deficit hyperactivity disorder 818018902 F90.9 reviewed self assessment with pt,cont wellbutrin 150 q amdeclined referral to psychiatry Mood disorder 54119716 F 38 pt hx of depression and anxiety while in collegewea cassidy self off citalopram , improved, cont wellbutrin but will change dose for off label adhd R/B/A/SE of antidepres tad medication discussed such as gastrointe stinal s/e, mood irritabili ty, Suicidal ideation, risk of torin. cont wellbutrin Vitamin D deficiency 347 43573 E55.9 cont vit d replacemen t Edema of l ower extremity 789037737 R60.0 jennifer ankles,con t diuretic prn Obesity 961385160 E66.9 advised low fat, low cholestero l diet, regular exercise and weight reduction. [id number] Aide Fischer APN, JUAN Neal (Adult Med) [address] [place] [address] 01/30/2023 16:45:49 02/05/2023 12:03:29 Adult attention deficit hyperactivity disorder 220743125 F90.9 reviewed self assessment with pt,cont wellbutrin 150 q amdeclined referral to psychiatry Mood disorder 97199696 F 38 pt hx of depression and anxiety while in collegecon t wellbutrin for off label adhd R/B/A/SE of antidepres tad medication discussed such as gastrointe stinal s/e, mood irritabili ty, Suicidal ideation, risk of torin.cont wellbutrin Vitamin D deficiency 347 80174 E55.9 cont vit d replacemen t Edema of l ower extremity 163902205 R60.0 jennifer ankles,con t diuretic prn Obesity 033332072 E66.9 advised low fat, low cholestero l diet, regular exercise and weight reduction. 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 Vitamin D deficiency 347 02550 E55.9 cont vit d replacemen t Edema of l ower extremity 103014022 R60.0 jennifer ankles,con t diuretic prn Obesity 482790059 E66.9 advised low fat, low cholestero l diet, regular exercise and weight reduction. [id number] Aide Fischer APN, FNP-C [facility] (Adult Med) [address] [place] [address] 12/02/2023 15:39:41 12/09/2023 09:51:55 History and physical examination, pre-employment 169358296 Z02.1 needs work physical completed, will bring in form Normal 5075798 2 Z34.90 cont with OB as plannedPNV [id number] LOUISE [facility] (Adult Med) [address] [place] [address] 03/13/2024 15:30:13 03/16/2024 09:13:14 Administration of diphtheria, pertussis, and tetanus vaccine 245465158 Z23 Health Concerns Section Related Observation LastModified by Organization Detai ls LastModified Time None Recorded Concern Status LastModified by Organization Details LastModified Time None Recorded Advance Directives Directive N: Payers Encounter Date Sequence Insurance Name Policy Number Policy Ricketts Covered Member ID Ricketts Member ID Guarantor Name 07/31/2022 1 [facility] (MEDICAID HMO) [id number] Elyce Joseph [id number] Elyce Malinda Joseph 07/31/2022 2 *SELF PAY* El yce Malinda Joseph 01/30/2023 1 [facility] (MEDICAID HMO) [id number] Elyce Joseph [id number] Elyce Malinda Joseph 01/30/2023 2 *SELF PAY* El yce Malinda Joseph 08/26/2023 1 [facility] (MEDICAID HMO) [id number] Elyce Joseph [id number] Elyce Malinda Joseph 08/26/2023 2 *SELF PAY* El yce Malinda Joseph 12/02/2023 1 [facility] (MEDICAID HMO) [id number] Elyce Joseph [id number] Elyce Malinda Joseph 12/02/2023 2 *SELF PAY* El yce Malinda Joseph 03/13/2024 2 *SELF PAY* El yce Malinda Joseph 03/13/2024 1 [facility] [id number] Luis Ae Malinda Joseph [id number] Elyce Malinda Joseph Notes Date Note Type Note Provider Name and Address Organization Details Recorded Time 07/31/2022 text/html jennifer ankles swelling-improved , swelling on and off. more swollen in the afternoon,not every day, never even had swollen ankles with stopped smoking adhd- trial of wellbutrin, doing much better, sleep is good, taking omega 3 and magnesium Aide Fischer APN, WOOD COATER-C Attn: [place], [address], [facility] 08/01/2022 00:31:05 01/30/2023 text/html jennifer ankles swelling-improved , swelling on and off. more swollen in the afternoon,not every day, never even had swollen ankles with stopped smoking adhd- trial of wellbutrin, doing much better, sleep is good, taking omega 3 and magnesium Aide Fischer APN, FNP-C Attn: Accounting,[address] [facility], [place], [address], [facility] 01/30/2023 21:21:51 08/26/2023 text/html jennifer ankles swelling-improved , swelling on and off. more swollen in the afternoon,not every day, never even had swollen ankles with , not on med anymore, may need for summer stopped smoking adhd- trial of wellbutrin-stoppe d, doing much better without medication no, sleep is good, taking omega 3 and magnesium Aide Fischer APN, JUDITH-C Attn: Accounting,[address] [facility], [place], [address], [facility] 08/26/2023 17:47:13 12/02/2023 text/html here for work physicalpt is [address] ob Dr Latham.no complaints Aide Fischer APN, FNP-C Attn: Accounting,[address] [facility], [place], [address], [facility] 12/02/2023 16:10:08 OBGyn Episode No OBEpisode recorded.
--- OUTSIDE RECORDS SUMMARY | 2024-05-28 00:17 | XMS_ITS | Continuity of Care Document ---
Author Organization [facility] Address [address] [place] [address] Phone Care Team Providers Care Adventure Challenge Instructor Name Role Phone César Moyer MD Unavailable Unavailable Results Test Name Date and Time Measure Units Reference Range Abnormal Flag Status Comments Panel Description: RAPID STREP A- OFFICE LAB Un known RAPIDSTREP 00:00:00 neg Unknown Panel Description: Strep Gr A Culture-OL Unknow n STREP CULT 00:00:00 neg Unknown Advance Directives Directive Yes / No Effective Date File Name No Information Encounters Encounter Description Practice Location Reason(s) For Visit Diagnoses Date Provider Providers Copied on Encounter [facility], [address], [place], [place], [address], tel:[phone] [facility] No Information Comfort [address]. [address], [address], [id number] , . tel: [phone] [facility] [address], [place], [place], [address], tel:[phone] [facility]fort Lindsey. [address], [address], [place], [place], [address] , . tel: [phone] Family History Family Member Type Diagnosis Age At Onset No Information Immunizations Vaccine Date Status Comments 13535 - TD administered Source: Source Unspecified 04227 - Hepatitis_B administered Source: Source Unspecified 85772 - Hepatitis_B administered Source: Source Unspecified 73620 - Hepatitis_B administered Source: Source Unspecified 15557 - DTaP_DTP_DT_PEDS administered Joselyn rce: Source Unspecified 88553 - MMR administered Source: Source Unspecified 74210 - Polio_OPV_IPV administered Source : Source Unspecified 70573 - DTaP_DTP_DT_PEDS administered Joselyn rce: Source Unspecified 41994 - Polio_OPV_IPV administered Source : Source Unspecified 63787 - Hib administered Source: Source Unspecified 70589 - MMR administered Source: Source Unspecified 25355 - Polio_OPV_IPV administered Source : Source Unspecified 40372 - Hib administered Source: Source Unspecified 80170 - Hib administered Source: Source Unspecified 53236 - Hib administered Source: Source Unspecified 03162 - DTaP_DTP_DT_PEDS administered Joselyn rce: Source Unspecified 65182 - DTaP_DTP_DT_PEDS administered Joselyn rce: Source Unspecified 66522 - Polio_OPV_IPV administered Source : Source Unspecified 06089 - Polio_OPV_IPV administered Source : Source Unspecified 68459 - DTaP_DTP_DT_PEDS administered Joselyn rce: Source Unspecified Payers Payer name Insurance type Covered democrat ID Authoriza tion(s) No Information Social History Type Description Quantity Date Captured Comments Sex Female Smoking Status No Information Vital Signs Date / Time: Height Weight BMI Pulse Rate Blood Pressure Temperature Respiratory Rate Body Surface Area Head Circumference Head Circ. Percentile Wt./Matty. Percentile BMI percentile Pulse Ox Inhaled Ox 1:11 PM 181.00 lbs 98.80 F Chief Complaint And Reason For Visit No Information Reason For Referral Reason For Referral No Information History Of Present Illness Encounter Date Complaint History Of Prese nt Illness No Information Functional Status Date Functional Assessmen t No Information Instructions Date Instruction Additional Infor mation No Information Assessments Type Assessment Date No Information Patient Care Teams Name Effective Dates (start - stop) Status Members No Information
--- OUTSIDE RECORDS SUMMARY | 2024-05-28 00:17 | XMS_ITS | Referral Summary ---
Author Organization [facility] Address [address] [place] [address] Care Team Providers Care Ingot Buggy Operator Name Role Phone Aide Erazo NP Primary Care Provider Allergies No known active allergies Medications promethazine-DM (PROMETHAZINE-DM ) 1.25-3 mg/mL syrup Take 5 mL by mouth 4 (four) times a day as needed for cough 118 mL 12/25/2018 Active Social History Tobacco Use Types Packs/Day Years Used Date Smoking Tobacco: Never Smokeless Tobacco: Never Alcohol Use Standard Drinks/Week Comments Not Currently 0 (1 standard drink = 0.6 oz pur e alcohol) Personal Safety Answer Date Recorded Getting School Help Needed Not on file 06/28 Comments No Sex and Gender Information Value Date Recorded Sex Assigned at Not on file 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 Gender Identity Not on file Sexual Orientation Not on file Last Filed Vital Signs Vital Sign Reading Time Taken Comments Blood Pressure 129/80 12/25/2018 12:04 PM CDT Pulse 92 12/25/2018 12:04 PM CDT Temperature 36.9 C (98.5 F) 12/25/2018 12:04 PM CDT Respiratory Rate 16 12/25/2018 12:04 PM CDT Oxygen Saturation 95% 12/25/2018 12:04 PM CDT Inhaled Oxygen Concentration - - Weight 86.2 kg (190 lb) 12/25/2018 12:04 PM CDT Height 160 cm (5' 3 ) 12/25/2018 12:04 PM CDT Body Mass Index 33.66 12/25/2018 12:04 PM CDT Plan of Treatment Not on file Insurance [facility] Care Teams Ingot Buggy Operator Relationship Specialty Start Date End Date Aide Erazo NP [address] [place] [address] PCP - General 12/25/18
--- OUTSIDE RECORDS SUMMARY | 2024-05-28 00:17 | XMS_ITS | Clinical Summary ---
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 Gender Identity Not on file Sexual Orientation Not on file Obstetrics History Last Filed Vital Signs Vital Sign Reading [...] 12/25/2018 12:04 PM CDT Plan of Treatment Health Maintenance Due Date Last Done Comments Cervical Cancer Screening 1989 Depression Screening 1989 Hepatitis C Screening 1989 Varicella Vaccines (1 of 2 - 13+ 2-dose series) 2002 Hepatitis B Screening 08/12/2007 Regular Well Visit/Exam 18-64 08/12/2007 Influenza Vaccine (#1) 2023 DTaP/Tdap/Td Vaccine (3 - Td or Tdap) 12/15/2024 12/15/2014, 04/15/2010 Pneumococcal vaccine <65 Aged Out 04/15/2013 No longer eligible based on patient's age to complete this topic HPV Vaccines Aged Out No longer eligi ble based on patient's age to complete this topic Insurance [facility] Care Teams Electrical Timing Device Calibrator Relationship Specialty Start Date End Date Aide Erazo NP [address] [place] [address] PCP - General 12/25/18
--- NOTE | 2024-05-28 08:12 | P.HP_ITS ---
H&P: HPI History of Present Illness Date/Time: 05/28/24 08:12 33-year-old 3 para 2001 presents at 39 weeks gestation for repeat delivery. Prior 2 deliveries without complication. records are on the chart and no significant abnormalities. Does not desire sterilization. Chief Complaint: Review of Systems Review of Systems: All systems reviewed & are unremarkable except as noted in HPI and below PMFSH Past Medical History Medical History Irregular periods Encounter for IUD removal 11/25/18 Mirena removal Encounter for IUD insertion 07/19/17 Mirena insertion Depression Anxiety HPV in female Abnormal Pap smear of cervix 2012 dysplasia- 07/02/2016+hpv Family planning Surgical History Surgical History [place] teeth removed History of surgery on upper extremity surgery left arm as kid History of 12/25/14 primary c/s--face presentation/mentum posterior 04/05/17 rpt c/s Family History Family History Grandparent Diabetes mellitus maternal grandmother maternal grandfather Hypertension maternal grandmother maternal grandfather Cerebrovascular accident maternal grandfather Legal Guardian No problems noted. Mother Asthma Sibling Asthma Social History Social History Smoking status: Never smoker Second hand tobacco smoke exposure: No Alcohol intake: former Drinks per week: 2 Substance use: former Substance use type: marijuana Other substance usage details: daily Last use: 12/2022 Do You Feel Safe in your Home?: Yes Lack of Transportation: No Lack of Food: Never True Current Housing: I Have Housing Concerned About Future Housing: No Difficulty Paying Gas/Electric Bills: No Difficulty Paying for Meds: No Currently Unemployed: No Education: Bachelor's Degree Difficulty w/ Childcare or Family Care: No Living arrangements: with family Additional living arrangements comments: Occupation/Education: occupation 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 Gender identity (if verbalized by the patient): Female Sexual Orientation (if Verbalized by the Patient): Straight or Heterosexual Meds Home Medications and Allergies Home Medications ?Medication ?Instructions ?Recorded ?Confirmed ?Type cholecalciferol (vitamin D3) 1,250 1,250 mcg PO WEEKLY 02/05/23 05/20/24 History mcg (50,000 unit) capsule docosahexaenoic acid 200 mg mg PO 10/30/23 05/20/24 History capsule (Algal [place]-3 DHA) ondansetron HCl 4 mg tablet 4 mg PO Q6H #20 tabs 05/04/24 05/20/24 Rx oseltamivir 75 mg capsule (Tamiflu) 75 mg PO BID 5 days #10 caps 05/26/24 Rx Allergies Allergy/AdvReac Type Severity Reaction Status Date / Time No Known Allergies Allergy Unknown Verified 05/20/24 15:00 Exam Const: General: cooperative and healthy appearing Resp: Effort & Inspection: normal respiratory effort Auscultation: clear to auscultation bilaterally Cardio: Rate: regular rate Rhythm: regular rhythm GI: Inspection: normal to inspection and incision Auscultation: normal bowel sounds : Bimanual exam- vagina & uterus: enlarged (Fundal height 40cm heart tones 140) Assessment and Plan Assessment and plan (1) 39 weeks gestation of : Code(s): Z3A.39 - 39 weeks gestation of Status: Acute (2) History of delivery, antepartum: Code(s): O34.219 - Maternal care for unspecified type scar from previous delivery Status: Acute Plan Proceed with repeat low-transverse section. No sterilization procedure.
--- NOTE | 2024-05-28 08:15 | WPDHPUPDATE1 ---
History and Physical Update Update Date/Time: 05/28/24 08:15 History and Physical has been reviewed, including an updated exam of the patient. There are NO changes in the patient's condition. Risks, benefits, and alternatives have been discussed and questions answered. Patient agrees to proceed with procedure.
[2024-05-28 10:00] LABS: Basophils Percent Auto 0.4 % (0.2-1.2); Eosinophils Absolute Auto 0.1 K/mm3 (0-0.3); Eosinophils Percent Auto 0.5 % (0-4.4); Hematocrit 38.4 % (37.0-47.0); Hemoglobin 12.6 g/dL (12.0-15.0); Immature Granulocyte Absolute 0.03 K/mm3 (0.00-0.031); Immature Granulocyte Percent A 0.3 % (0-0.5); Lymphocytes Percent Auto 12.5 % (18.3-44.2); Mean Corpuscular HGB Conc 32.8 g/dl (32-36); Mean Corpuscular Hemoglobin 31.2 pg (26-34); Mean Platelet Volume 9.6 fl (7.4-10.4); Monocytes Absolute Auto 0.5 K/mm3 (0.1-0.6); Monocytes Percent Auto 4.2 % (2.6-8.5); Neutrophils Absolute Auto 9.2 K/mm3 (1.3-6.7); Neutrophils Percent Auto 82.1 % (45.5-73.1); Platelet Count Result 405 k/mm3 (150-375); Red Blood Count 4.04 M/mm3 (4.2-5.4); Red Cell Distribution Width 13.2 % (11.5-14.5); White Blood Count 11.2 K/mm3 (4.5-10.0)
[2024-05-28] MEDS: ACETAMINOPHEN 500 MG TABLET 1000 MG PO (10:09)
[2024-05-28] MEDS: LACTATED RINGERS 1,000 ML 125 ML IV CONT ×2 (10:10→10:49)
--- NOTE | 2024-05-28 10:14 | P.PNAN_ITS ---
Anes - Initial Pre Proc Eval Procedure: Operation Date: 05/28/24 12:00 Proposed Procedures p Repeat Section - Chacorta Gonzalez MD Date/Time: 05/28/24 10:14 Surgeon: Chacorta Gonzalez MD Pre Op Diagnosis: C Section Patient Data Age: 33 Gender: F Height: 1.6 m Weight: 102 kg Last Vital Signs Pulse 90 05/28/24 10:01 BP 125/76 05/28/24 10:01 Allergies Allergy/AdvReac Type Severity Reaction Status Date / Time No Known Allergies Allergy Unknown Verified 05/20/24 15:00 Home Medications ?Medication ?Instructions ?Recorded ?Confirmed ?Type cholecalciferol (vitamin D3) 1,250 1,250 mcg PO WEEKLY 02/05/23 05/20/24 History mcg (50,000 unit) capsule docosahexaenoic acid 200 mg mg PO 10/30/23 05/20/24 History capsule (Algal [place]-3 DHA) ondansetron HCl 4 mg tablet 4 mg PO Q6H #20 tabs 05/04/24 05/20/24 Rx oseltamivir 75 mg capsule (Tamiflu) 75 mg PO BID 5 days #10 caps 05/26/24 Rx Laboratory Tests 05/28/24 09:42 WBC 11.2 H K/mm3 (4.5-10.0) RBC 4.04 L M/mm3 (4.2-5.4) Hgb 12.6 g/dL (12.0-15.0) Hct 38.4 % (37.0-47.0) MCV 95.0 fl (80-100) MCH 31.2 pg (26-34) MCHC 32.8 g/dl (32-36) RDW 13.2 % (11.5-14.5) Plt Count 405 H k/mm3 (150-375) MPV 9.6 fl (7.4-10.4) Immature Gran % (Auto) 0.3 % (0-0.5) Neut % (Auto) 82.1 H % (45.5-73.1) Lymph % (Auto) 12.5 L % (18.3-44.2) [place] % (Auto) 4.2 % (2.6-8.5) Eos % (Auto) 0.5 % (0-4.4) Baso % (Auto) 0.4 % (0.2-1.2) Lymph # (Auto) 1.40 K/mm3 (0.9-3.2) [place] # (Auto) 0.5 K/mm3 (0.1-0.6) Eos # (Auto) 0.1 K/mm3 (0-0.3) Baso # (Auto) 0.0 K/mm3 (0.0-0.1) Abs Immat Gran (auto) 0.03 K/mm3 (0.00-0.031) Absolute Neuts (auto) 9.2 H K/mm3 (1.3-6.7) Absolute Nucleated RBC 0.000 K/mm3 (0.0-0.012) Nucleated RBC % 0.0 % (0.0-0.2) RPR Pending HIV 1&2 Ab/P24 Ag 4thGn Pending Patient hx anesthesia problems: none Family hx anesthesia problems: none Results Review: All pre-operative results and documents have been reviewed as part of the pre- operative evaluation. [facility] Past Medical History Medical History Irregular periods Encounter for IUD removal 11/25/18 Mirena removal Encounter for IUD insertion 07/19/17 Mirena insertion Depression Anxiety HPV in female Abnormal Pap smear of cervix 2012 dysplasia- 07/02/2016+hpv Family planning Surgical History Surgical History [place] teeth removed History of surgery on upper extremity surgery left arm as kid History of 12/25/14 primary c/s--face presentation/mentum posterior 04/05/17 rpt c/s Family History Family History Grandparent Diabetes mellitus maternal grandmother maternal grandfather Hypertension maternal grandmother maternal grandfather Cerebrovascular accident maternal grandfather Legal Guardian No problems noted. Mother Asthma Sibling Asthma Social History Social History Smoking status: Never smoker Second hand tobacco smoke exposure: No Alcohol intake: former Drinks per week: 2 Substance use: former Substance use type: marijuana Other substance usage details: daily Last use: 12/2022 Do You Feel Safe in your Home?: Yes Lack of Transportation: No Lack of Food: Never True Current Housing: I Have Housing Concerned About Future Housing: No Difficulty Paying Gas/Electric Bills: No Difficulty Paying for Meds: No Currently Unemployed: No Education: Bachelor's Degree Difficulty w/ Childcare or Family Care: No Living arrangements: with family Additional living arrangements comments: Occupation/Education: occupation 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 Gender identity (if verbalized by the patient): Female Sexual Orientation (if Verbalized by the Patient): Straight or Heterosexual Anes - Eval Final PreProcedure Day of Procedure 05/28/24 10:14 Patient weight: obese Heart: regular rate and rhythm Lungs: clear to auscultation Airway: Mallampati scale class 1 Neurological: alert and oriented Last oral intake: >/= 8 hours ASA classification: II Emergent: no Anesthetic plan: proceed Anesthesia type and monitoring: regional spinal and standard monitoring Results Review: All pre-operative results and documents have been reviewed as part of the pre- operative evaluation. Informed Consent: The patient's anesthetic plan and its attendant risks and benefits were discussed with the patient/family/POA. Questions were solicited and answers provided to the satisfaction of the patient/family/POA.
--- NOTE | 2024-05-28 10:22 | LDADM ---
This patient, Demian Ruiz, was admitted to Labor/Delivery/Recovery 118 on 05/28/24 at 09:22. Plans for labor, pain management and were discussed with patient. Patient/family oriented to hospital policies and general routines including ID bracelet, bed and alarms, visiting hours, pain management, procedures, bathroom and other care routines, personal items, smoking policy, room service/diet and guest tray routines, security routines, and visiting hours. Patient/Family are encouraged to report perceived risks to care and to ask questions if they do not understand what they are told or what they should do. See OBIX for further documentation.
[2024-05-28 10:38] LABS: Rapid Plasma Reagin Non-Reactive (NonReactive)
[2024-05-28] MEDS: ONDANSETRON INJ 4 MG/2 ML VIAL IV PUSH (10:51)
[2024-05-28] MEDS: FAMOTIDINE 20 MG/2 ML VIAL IV PUSH (10:52)
[2024-05-28 11:05] LABS: HIV 1/2 Ab P24 Ag Result Negative (Negative)
[2024-05-28] MEDS: ceFAZolin 2 GM/D5W 50 ML 2 GM/50 ML BAG IVPB (11:09)
--- NOTE | 2024-05-28 12:15 | W.PM.OBCSD ---
OB - Delivery Note Procedure Delivery date: 05/28/24 Pre-op diagnosis: Previous Delivery Post-op Diagnosis: Same Procedure Performed: Repeat Secondary branch: low cervical, transverse Surgeon: Chacorta Gonzalez MD Anesthesia type: Spinal Description of Procedure/Findings: Patient prepped and draped usual manner for this procedure. Pfannenstiel incision was made and carried down to the fascia. This was extended bilaterally the skin incision. Uterus was adhered to the fascia and bladder flap was adhered to the fascia as well. This was dissected out prior to entering the fascial layer. Peritoneum was then readily entered without difficulty and bladder flap adhesions were taken down sharply. Pfannenstiel incision was made with clear fluid noted in vertex was delivered without difficulty. Rest baby was there with out difficulty both cord was clamped and cut and placenta was removed manually. Uterus was exteriorized and closed using 0 Monocryl in running interlocking manner with good approximation hemostasis noted. And some other areas of scarring in the left sign there was some oozing this was rendered hemostatic [id number] suture, as well as [place] and [place] term. Uterus was turned the abdomen uterus was hemostatic all subfascial tissue was noted hemostatic and the fascia was then approximated using 0 Vicryl from the left angle midline right angle to midline good approximation hemostasis noted. Subcutaneous tissue was evaluated in was no bleeding. Approximated using 0 plain suture and johnny were then used to approximate the skin edges. Patient was sent to recovery room in stable condition. Specimen: Yes Estimated Blood Loss: 325 Drains: Yes (Jeong catheter) Packing: No Pathology: Yes (Placenta) Complications: No immediate complications Condition: Stable Disposition: PACU [place] Baby Gestational Age by Date: 39 gender: Male presentation: vertex Placenta delivery description: Manual Removal Cord Vessel Description: 3 Vessels
[2024-05-28] MEDS: OXYTOCIN 30 UNITS/NS 500 ML 30 UNITS/500 ML BAG 125 UNITS IV CONT (12:47)
[2024-05-28] MEDS: LIDOCAINE 5% PATCH 1 PATCH TRANSDERM (13:14)
[2024-05-28] MEDS: fentaNYL CITRATE INJ (*CRX) 100 MCG/2 ML VIAL 25 MCG IV PUSH ×3 (13:18→14:33)
[2024-05-28] MEDS: diphenhydrAMINE HCl INJ 50 MG/ML VIAL 25 MG IV PUSH (14:13)
--- NOTE | 2024-05-28 14:40 | OBPPTRN ---
Patient transferred to post room #278 via stretcher. Support person present. Oriented to unit, room, information board, rooming in, admission packet and security measures. Patient verbalizes understanding.
[2024-05-28] MEDS: ACETAMINOPHEN 325 MG TABLET 650 MG PO ×2 (16:16→23:00)
[2024-05-28] MEDS: SIMETHICONE 80 MG TAB.CHEW PO (16:16)
[2024-05-28] MEDS: DOCUSATE SODIUM 100 MG CAPSULE PO (16:16)
[2024-05-28] MEDS: KETOROLAC 15 MG/ML VIAL (*BKC) IV PUSH ×2 (16:16→23:00)
[2024-05-28] MEDS: DEXTROSE 5%/0.45% SOD CHL 1,000 ML 125 ML IV CONT (17:10)
[2024-05-29 04:40] VITALS: BP 114/69; PULSE 75; RESP 18; TEMP 36.8; O2SAT 98
[2024-05-29] MEDS: ACETAMINOPHEN 325 MG TABLET 650 MG PO ×4 (04:40→22:32)
[2024-05-29] MEDS: KETOROLAC 15 MG/ML VIAL (*BKC) IV PUSH ×2 (04:40→10:30)
[2024-05-29 05:08] LABS: Basophils Percent Auto 0.2 % (0.2-1.2); Eosinophils Absolute Auto 0.1 K/mm3 (0-0.3); Eosinophils Percent Auto 0.4 % (0-4.4); Hematocrit 33.7 % (37.0-47.0); Hemoglobin 10.8 g/dL (12.0-15.0); Immature Granulocyte Absolute 0.05 K/mm3 (0.00-0.031); Immature Granulocyte Percent A 0.4 % (0-0.5); Lymphocytes Absolute Auto 1.79 K/mm3 (0.9-3.2); Lymphocytes Percent Auto 13.4 % (18.3-44.2); Mean Corpuscular Hemoglobin 31.1 pg (26-34); Mean Corpuscular Volume 97.1 fl (80-100); Mean Platelet Volume 9.6 fl (7.4-10.4); Monocytes Absolute Auto 0.8 K/mm3 (0.1-0.6); Monocytes Percent Auto 6.2 % (2.6-8.5); Neutrophils Absolute Auto 10.6 K/mm3 (1.3-6.7); Neutrophils Percent Auto 79.4 % (45.5-73.1); Platelet Count Result 339 k/mm3 (150-375); Red Blood Count 3.47 M/mm3 (4.2-5.4); Red Cell Distribution Width 13.3 % (11.5-14.5); White Blood Count 13.4 K/mm3 (4.5-10.0)
[2024-05-29] MEDS: SIMETHICONE 80 MG TAB.CHEW PO ×3 (06:53→16:30)
[2024-05-29] MEDS: DOCUSATE SODIUM 100 MG CAPSULE PO ×2 (06:53→15:55)
[2024-05-29] MEDS: MULTIVIT/MIN/PREN/FOL AC/IRON TABLET 1 TAB PO (06:53)
[2024-05-29 07:45] VITALS: BP 115/55; PULSE 72; RESP 18; TEMP 36.6; O2SAT 97
--- NOTE | 2024-05-29 08:00 | WPDANLDPN2 ---
Anes-Prog Note L&D Date/Time: 05/29/24 08:00 Comfortable throughout: section Neuraxial method: spinal Epidural/Spinal procedure site: clean & non-tender Neuro status: Neuro function grossly intact. Cardiovascular status: normal Respiratory status: normal Airway patency: baseline Mental status: baseline Post-Op hydration status: normal Vital Signs: Last Vital Signs Temp 36.8 C 05/29/24 04:40 Pulse 75 05/29/24 04:40 Resp 18 05/29/24 04:40 BP 114/69 05/29/24 04:40 Pulse Ox 98 05/29/24 04:40 O2 Del Method Room Air 05/29/24 04:40 Pain score (VAS): 04/24 I/O: Intake & Output 05/28/24 05/29/24 05/29/24 23:59 07:59 15:59 Intake Total 1050 1200 Output Total 650 700 Balance 400 500 Post-procedural complaints: none Patient feedback: Patient satisfied with anesthetic care.
--- NOTE | 2024-05-29 08:01 | WPDANLDNPN2 ---
Anes-Prog Note L&D-Neuraxial Date/Time: 05/29/24 08:01 Neuraxial medications: intrathecal PF morphine Opiod-related complaints: none Patient feedback: Patient satisfied with post-operative pain management.
--- NOTE | 2024-05-29 12:44 | P.PNOB_ITS ---
OB - PN: Subj Subjective Date/time seen: 05/29/24 12:45 Narrative: POD#1 Demian reports doing well today. 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 Her pain is controlled. She is tolerating regular diet, voiding, passing gas, and ambulating without issues. She denies any issues with her incision. She is breast feeding. She would like her son circumcised. OB - PN: Obj Data Labs 05/29/24 04:35 Labs: Laboratory Results - last 24 hr 05/28/24 05/29/24 09:42 04:35 WBC 11.2 H 13.4 H RBC 4.04 L 3.47 L Hgb 12.6 10.8 L Hct 38.4 33.7 L MCV 95.0 97.1 MCH 31.2 31.1 MCHC 32.8 32.0 RDW 13.2 13.3 Plt Count 405 H 339 MPV 9.6 9.6 Immature Gran % (Auto) 0.3 0.4 Neut % (Auto) 82.1 H 79.4 H Lymph % (Auto) 12.5 L 13.4 L [place] % (Auto) 4.2 6.2 Eos % (Auto) 0.5 0.4 Baso % (Auto) 0.4 0.2 Lymph # (Auto) 1.40 1.79 [place] # (Auto) 0.5 0.8 H Eos # (Auto) 0.1 0.1 Baso # (Auto) 0.0 0.0 Abs Immat Gran (auto) 0.03 0.05 H Absolute Neuts (auto) 9.2 H 10.6 H Absolute Nucleated RBC 0.000 0.000 Nucleated RBC % 0.0 0.0 RPR Non-reactive HIV 1&2 Ab/P24 Ag 4thGn Negative Blood Type A Positive Antibody Screen Negative OB - PN A/P Assessment and Plan (1) S/P repeat low transverse : Code(s): Z98.891 - History of uterine scar from previous surgery Status: Acute Plan day: 1 Plan: routine care Comments: - PO pain meds - Regular diet - Ambulation and hydration encouraged - Continue putting baby to breast q2-3hr Time Spent With Patient Time: Total time spent is greater than 50% in coordination of care (as documented) at patient's floor/unit and/or counseling patient: Review of Systems 2 Constitutional: Constitutional: Denies chills, Denies fever(s) and Denies headache(s) Eyes: Eyes: Denies change in vision ENT: Denies dizziness and Denies headache(s) Cardiovascular: Cardiovascular: Denies chest pain, Denies palpitations and Denies dyspnea Respiratory: Respiratory: Denies cough and Denies dyspnea Gastrointestinal: Gastrointestinal: Denies nausea and Denies vomiting Genitourinary: Comments: normal bleeding Neurologic: Denies dizziness and Denies headache(s) Endocrine: Endocrine: Denies palpitations Exam 2 Const: General: cooperative, comfortable, no acute distress and obese O rientation/consciousness: patient oriented x3 Resp: Effort & Inspection: normal respiratory effort Auscultation: clear to auscultation bilaterally Cardio: Rate: regular rate GI: Inspection: non-distended and incision (covered with clean dressing) GI Palp: Yes abdominal tenderness (appropriate) and Yes Soft to palpation A uscultation: normal bowel sounds : Other: fundus firm Skin: General skin exam: normal color Neuro: General: patient oriented x3 Extrem: General: normal to inspection Psych: Appearance: grossly normal Affect: normal affect Attitude: c ooperative
--- NOTE | 2024-05-29 13:45 | PC.NURSE ---
1345- Met with patient to assess needs related to . Mom states that she has been attempting to feed baby but that he hasn't eaten well since 0230. We tried to wake him and we did circ care and changed a diaper. We then attempted to put him to breast but he was sleepy and would not open his mouth or latch. Educated parents that we need to get a blood glucose level since it has been so long since he nursed well. His glucose was 75. Mom is going to place baby skin to skin and we will try again in 30 minutes. Encouraged mom to watch for early feeding cues and offer the breast if he exhibits any signs that he is ready to latch. Reported to primary RN. 5100- Dr. Ramos had been in to see patient and I updated her that baby hadn't eaten in awhile but that is blood sugar was ok and we are going to try again soon. When I returned to the room, mom was attempting to latch again but baby was not giving any more effort than last time. Mom tries to pull down on his chin to get her nipple in his mouth, but he does not latch, gape, or suck. Mom agrees that we need to try to pump at this time, so that we can get something for baby and so that we stimulate her breasts. Baby is now over 24 hours old. Mom has a breast pump at home but would like to use a hospital pump now. Set patient up with the 24mm flanges and showed her how to use the initiate setting on the pump. She knows that she can adjust the suction to the highest comfortable setting but that pumping shouldn't hurt. Educated about cleaning pump parts after each use. Reported to primary RN. 1500- Primary RN went to see how much patient was able to pump. She had some drops of colostrum that she placed in baby's mouth. Parents would like to give baby some formula now since he hasn't had a good feeding and then go back to at the next feeding time. Parents have the name/number on the communication board.
[2024-05-29] MEDS: IBUPROFEN 600 MG TABLET PO ×2 (15:55→22:32)
[2024-05-29] MEDS: HYDROcodone/acetaminophen (*CRX) 5-325 MG TABLET 1 TAB PO (16:30)
[2024-05-29 22:25] VITALS: BP 118/62; PULSE 76; RESP 16; TEMP 36.7; O2SAT 99
[2024-05-30] MEDS: IBUPROFEN 600 MG TABLET PO ×2 (04:17→10:42)
[2024-05-30] MEDS: ACETAMINOPHEN 325 MG TABLET 650 MG PO ×2 (04:17→10:42)
[2024-05-30 08:10] VITALS: BP 117/66; PULSE 77; RESP 18; TEMP 36.8; O2SAT 96
[2024-05-30] MEDS: MULTIVIT/MIN/PREN/FOL AC/IRON TABLET 1 TAB PO (08:13)
[2024-05-30] MEDS: SIMETHICONE 80 MG TAB.CHEW PO (08:13)
[2024-05-30] MEDS: DOCUSATE SODIUM 100 MG CAPSULE PO (08:13)
--- NOTE | 2024-05-30 09:37 | PC.NURSE ---
Mother verbalizes she is able to independently latch with appropriate positioning and alignment. She denies any nipple discomfort and is responsively . Mother is also pumping and supplementing baby until her milk fully comes in. Infant is currently meeting outcomes for weight, output, jaundice, blood sugar and feeding frequencies of 8-12 times in 24 hours. Reinforced understanding of milk production, transition of milk, signs of adequate intake, transition of stool, prevention/relief of engorgement, plugged ducts, mastitis, responsive watching for feeding cues, the different methods of stimulating to breastfeed 1-3 hours after the start of the last feeding, community resources, and when to call a provider using the resource of the feeding sheet along with the mom and baby guide. Mother voiced understanding of the information shared, is confident to continue effectively her at home, when to call for assistance, denies any additional assistance or education at this time. Mother voiced understanding of information shared along with the mom/baby guide for an additional resource. Reported to the Primary RN.
--- NOTE | 2024-05-30 10:00 | P.DS_ITS ---
DS: Admitting Diagnosis Discharge Date 05/30/24 Admitting Diagnosis previous section DS: Discharge Diagnosis Discharge Diagnosis (1) S/P repeat low transverse : Code(s): Z98.891 - History of uterine scar from previous surgery Status: Acute OB - DS: Summary OB Procedures : Ultrasound OB Procedures Intrapartum: low cervical, transverse OB Procedures: : None Peripartum Data Delivery Method: Section Procedures: Procedures Operation Date: 05/28/24 12:00 Actual Procedure Side Surgeon p Section Chacorta Gonzalez MD complications: none [place] 1: Gender: Male Disposition of : home Status at Discharge Functional status at discharge: independent ambulation Overall status at discharge: patient is back to baseline Time Spent with Patient Time attestation: Total time spent providing and/or coordinating discharge services: Exam Const: General: cooperative, comfortable, no acute distress and obese Nutritional Appearance: obese Orientation/consciousness: patient oriented x3 Resp: Effort & Inspection: normal respiratory effort Auscultation: clear to auscultation bilaterally Cardio: Rate: regular rate GI: Inspection: non-distended and incision (covered w/ clean dressing) GI Palp: No abdominal tenderness and Yes Soft to palpation Auscultation: normal bowel sounds : Other: fundus firm Skin: General skin exam: normal color Neuro: General: patient oriented x3 Extrem: General: normal to inspection Psych: Appearance: grossly normal Affect: normal affect Attitude: cooperative DS: Data Data Completed and Pending Pending studies at discharge: Pending at discharge 05/28/24 11:37 Surgical [PTH] Routine Discharge Plan Discharge Attending physician on discharge: Zaria Shabazz Discharging Clinician: Zaria Shabazz Anticipated Discharge Date/Time: 05/30/24 11:00 Patient Disposition: Home, Self-Care Activity: may shower and pelvic rest Diet: regular Patient Instructions: Antibiotic Form Patient Language: [place] Stand Alone Forms: General Discharge Information Follow-up/Referrals: Chacorta Gonzalez MD [Physician] - Discharge Medications: New acetaminophen 325 mg Tablet 650 mg PO Q6H Qty: 60 0RF docusate sodium 100 mg Capsule 100 mg PO BID Qty: 90 0RF hydrocodone-acetaminophen 5-325 mg Tablet 1 tablet PO Q3H PRN (Reason: Breakthrough Pain Rated 4-6) Qty: 24 0RF ibuprofen 600 mg Tablet 600 mg PO Q6H Qty: 40 0RF Continued Algal [place]-3 DHA 200 mg capsule PO cholecalciferol (vitamin D3) 1,250 mcg (50,000 unit) capsule 1,250 mcg PO WEEKLY ondansetron HCl 4 mg tablet 4 mg PO Q6H Qty: 20 1RF PNV [id number]-ferrous fumarate-FA [] 28 mg iron- 800 mcg tablet 1 tablet PO DAILY oseltamivir [Tamiflu] 75 mg capsule 75 mg PO BID 5 Days Qty: 10 0RF Date of admission: 05/28/24 09:22 Primary Care Provider: Castro,Aide See Admitting Provider: Chacorta Gonzalez Attending physician on admission: Chacorta Gonzalez Condition: Stable
[2024-05-30] MEDS: HYDROcodone/acetaminophen (*CRX) 5-325 MG TABLET 1 TAB PO (10:42)
[2024-06-01 08:22] VITALS: BP 140/87; PULSE 78; RESP 18; TEMP 36.8; O2SAT 100
== END 2024-05-30 11:30 | disposition home or self-care (01) | DRG 788 ==
LOC: ANHOB2 05-29 07:50 → ANHLDR 06-01 12:11
PROVIDERS: Admitting Provider Obstetrics & Gynecology; PCP Nurse Practitioner Family; Visit Provider Obstetrics & Gynecology
PROC: 10D00Z1 Extraction of Products of Conception, Low, Open Approach (ICD-10-PCS; CPT 59514; principal; 2024-05-28 12:00)
DX: O34.211 Maternal care for low transverse scar from previous cesarean delivery (principal); Z37.0 Single live birth; Z3A.39 39 weeks gestation of pregnancy
CPT/HCPCS: 36415; 85025; 86592; 86703; 86850; 86900; 86901; 88307; A9270; G0432; J0690; J1100; J1200; J1885; J2274; J2405; J2590; J3010; J7120